=== PATIENT | male | born 1950 | race African-American/Black ===

== ENCOUNTER 2018-04-14 13:20 | Emergency (ER) | payer OTHER ==
[~2018-04-14] VITALS: Ht 185.4 cm; Wt 88.5 kg
[2018-04-14 14:20] VITALS: BP 169/95
[2018-04-14] MEDS ORDERED: KETOROLAC TROMETH 60MG/2ML VIAL IM ONE (14:45)
== END 2018-04-14 15:53 | disposition home or self-care (01) ==
LOC: ER 13:20
DX: M54.5 Low back pain (principal); I10 Essential (primary) hypertension; E11.9 Type 2 diabetes mellitus without complications; V49.49XA Driver injured in collision with other motor vehicles in traffic accident, initial encounter; Y93.89 Activity, other specified; Y99.8 Other external cause status; Y92.89 Other specified places as the place of occurrence of the external cause
CPT/HCPCS: 72100; 96372; 99284; J1885

== ENCOUNTER 2020-01-01 02:30 | Inpatient (IN) | payer MEDICAID ==
[2020-01-01] VITALS (16 sets, daily range): BP systolic 107–161; BP diastolic 22–92
[~2020-01-01] VITALS: Ht 195.6 cm; Wt 86.0 kg
[2020-01-01] MEDS ORDERED: PROPOFOL 100 ML IV ONE (02:43)
[2020-01-01] MEDS ORDERED: ETOMIDATE (2MG/ML) 20ML VIAL IV ONE (02:45)
[2020-01-01] MEDS ORDERED: SUCCINYLCHOLINE CHLORIDE 20 MG/ML 10ML VIAL IV ONE (02:45)
[2020-01-01] MEDS: PROPOFOL 100 ML IV SCH (02:45)
[2020-01-01] MEDS ORDERED: MIDAZOLAM DRIP 50 mg/50mL 50 ML IV ONE (02:55)
[2020-01-01] MEDS: MIDAZOLAM DRIP 50 mg/50mL 50 ML IV SCH ×3 (02:56→22:49)
[2020-01-01 03:19] LABS: Hemoglobin 15.7 g/dL (13.5-17.5)
[2020-01-01 03:20] LABS: Hematocrit 47.8 % (41.0-53.0); Mean Corpuscular Hemoglobin 32.5 pg (28.0-32.0); Mean Corpuscular Hgb Conc. 32.9 g/dL (32.0-36.0); Mean Corpuscular Volume 98.8 fL (80.0-100.0); Platelet Count (auto) 365 10^3/uL (140-450); Red Blood Cells 4.84 10^6/uL (4.5-5.90); Red Cell Distribution Width 13.3 % (11.8-14.3)
[2020-01-01] MEDS ORDERED: IPRATROPIUM BROM 0.5 MG/2.5ML INH SOL NEB ONE (03:30)
[2020-01-01] MEDS ORDERED: ALBUTEROL SULF 2.5 MG/0.5ML(0.5%) NEB SOLN NEB ONE (03:30)
[2020-01-01] MEDS ORDERED: methylPREDNISolone SOD SUCC 125 MG/2 ML VL IV ONE (03:30)
[2020-01-01 03:32] LABS: INR 1.01 (0.9-1.15); Partial Thromboplastin Time 28.5 sec (23.64-32.05)
[2020-01-01 03:36] LABS: Band Neutrophils % (manual) 0; Basophils % (manual) 0 (0.0-2.0); Blast Cells 0; Eosinophils % (manual) 0 (0-7); Metamyelocytes % 0; Myelocytes % 0; Promyelocytes % 0; Reactive Lymphocytes 0
[2020-01-01 03:47] LABS: Albumin 3.5 g/dL (3.4-5.0); Anion Gap 13 (5-15); Blood Urea Nitrogen 10 mg/dL (7-18); Carbon Dioxide 18 mmol/L (21-32); Chloride 104 mmol/L (98-107); Glucose 276 mg/dL (74-106); Potassium 3.4 mmol/L (3.5-5.1); Sodium 135 mmol/L (136-145)
[2020-01-01 03:49] LABS: Alanine Aminotransferase 37 U/L (16-61); Aspartate Aminotransferase 40 U/L (15-37); BUN/Creatinine Ratio 8.8; GFR African American 83 mL/min; GFR Non-African American 69 mL/min
[2020-01-01 03:51] LABS: Alkaline Phosphatase 83 U/L (45-117); Bilirubin, Total 0.4 mg/dL (0.2-1.0); Total Protein 8.7 g/dL (6.4-8.2)
[2020-01-01] MEDS ORDERED: SODIUM CHLORIDE 0.9% 1,000 ML IV ONE (03:53)
[2020-01-01 03:55] LABS: Lymphocytes % (manual) 75 (10.0-50.0); Monocytes % (manual) 5 (0-12)
[2020-01-01] MEDS ORDERED: ENOXAPARIN SOD 100 MG/1 ML SYRINGE SC ONE (04:15)
[2020-01-01] MEDS ORDERED: fentaNYL Drip 2500mCg/250mlNS 250 ML IV ONE (04:22)
[2020-01-01] MEDS: fentaNYL Drip 2500mCg/250mlNS 250 ML IV SCH (04:22)
[2020-01-01] MEDS ORDERED: PIPERACILLIN-TAZOB 3.375GM 100 ML IV ONE (04:30)
[2020-01-01] MEDS ORDERED: VANCOMYCIN 1GM/250ML 250 ML IV ONE ×2 (04:30→15:00)
[2020-01-01] MEDS ORDERED: SODIUM CHLORIDE 0.9% 1,000 ML IV SCH (06:40)
[2020-01-01] MEDS ORDERED: ACETAMINOPHEN 325 MG TAB PO PRN (06:45)
[2020-01-01] MEDS ORDERED: DEXTROSE (50%) 50ML SYRG IV PRN (06:45)
[2020-01-01] MEDS ORDERED: ACETAMINOPHEN 500 MG TAB PO PRN (06:45)
[2020-01-01] MEDS: ACCU-CHEK COMFORT CURVE STRIP VI SCH ×4 (08:41→20:00)
[2020-01-01] MEDS: InsuLIN REG 1unit/0.01ml Soln (100units/ml) SC SCH ×4 (09:17→20:00)
[2020-01-01] MEDS ORDERED: ZINC SULFATE 220mg CAP or TAB PO SCH (10:00)
[2020-01-01] MEDS ORDERED: ENOXAPARIN SOD 100 MG/1 ML SYRINGE SC SCH (10:00)
[2020-01-01] MEDS ORDERED: DOXYCYCLINE 100MG/250ML 250 ML IV SCH (10:00)
[2020-01-01] MEDS ORDERED: ASCORBIC ACID 1,000 MG TAB PO SCH (10:00)
[2020-01-01] MEDS ORDERED: CHOLECALCIFEROL (VITD3) 1,000IU=25mCg TAB PO SCH (10:00)
[2020-01-01] MEDS ORDERED: ENOXAPARIN SOD 40 MG/0.4 ML SYRINGE SC SCH (10:00)
[2020-01-01] MEDS: ASPirin 81 mg TAB PO SCH (11:20)
[2020-01-01] MEDS: CARVEDILOL 3.125 MG TAB PO SCH ×2 (11:20→21:39)
[2020-01-01] MEDS: CLOPIDOGREL BISULFATE 75 MG TAB PO SCH (11:21)
[2020-01-01] MEDS: ENALAPRIL MALEATE 2.5 MG TAB PO SCH ×2 (11:21→21:41)
[2020-01-01 11:23] LABS: Lactic Acid w/Reflex 2.1 mmol/L (0.4-2.0)
[2020-01-01 12:03] LABS: Urine Bacteria FEW /hpf (None Seen); Urine Blood 1+ /uL (Negative); Urine Specific Gravity 1.016 (1.001-1.035); Urine WBC 75 /hpf (0 - 3); Urine WBC Clumps PRESENT /hpf (None Seen)
[2020-01-01] MEDS ORDERED: ALBUTEROL SULF HFA 90MCG INH 200DOSE IN SCH (14:00)
[2020-01-01] MEDS: ALBUTEROL SULF 2.5 MG/0.5ML(0.5%) NEB SOLN NEB SCH ×2 (14:00→22:00)
[2020-01-01] MEDS ORDERED: VANCOMYCIN PER PHARMACY 0 MG IV SCH (14:30)
[2020-01-01] MEDS: PIPERACILLIN-TAZOB 3.375GM 100 ML IV SCH ×2 (16:05→21:40)
[2020-01-01] MEDS: FUROSEMIDE 20 MG/2 ML VIAL IV SCH (18:20)
[2020-01-01] MEDS: ATORVASTATIN 20 MG TAB PO SCH (21:38)
[2020-01-01] MEDS: methylPREDNISolone SOD SUCC 40 MG/ML VL IV SCH (21:40)
[2020-01-01] MEDS: SODIUM CHLORIDE 0.9% 1,000 ML IV SCH (21:40)
[2020-01-01] MEDS: ENOXAPARIN SOD 100 MG/1 ML SYRINGE SC SCH (21:41)
[2020-01-02] VITALS (42 sets, daily range): BP systolic 121–170; BP diastolic 66–98
[2020-01-02] MEDS: ACCU-CHEK COMFORT CURVE STRIP VI SCH ×6 (00:21→20:17)
[2020-01-02] MEDS: VANCOMYCIN 1GM/250ML 250 ML IV SCH ×2 (02:41→15:06)
[2020-01-02] MEDS: PIPERACILLIN-TAZOB 3.375GM 100 ML IV SCH ×4 (03:44→21:09)
[2020-01-02] MEDS: InsuLIN REG 1unit/0.01ml Soln (100units/ml) SC SCH ×6 (03:50→20:17)
[2020-01-02 04:24] LABS: Basophils # (auto) 0 10 ^3/uL (0-0.2); Basophils % (auto) 0.1 % (0.0-2.0); Eosinophils # (auto) 0 10 ^3/uL (0-0.8); Hematocrit 36.6 % (41.0-53.0); Hemoglobin 12.5 g/dL (13.5-17.5); Lymphocytes # (auto) 0.7 10 ^3/uL (0.4-5.4); Lymphocytes % (auto) 5.8 % (10.0-50.0); Mean Corpuscular Hemoglobin 32.4 pg (28.0-32.0); Mean Corpuscular Hgb Conc. 34.2 g/dL (32.0-36.0); Mean Corpuscular Volume 94.7 fL (80.0-100.0); Monocytes # (auto) 0.3 10 ^3/uL (0-1.3); Monocytes % (auto) 2.6 % (0.0-12.0); Neutrophils # (auto) 11.5 10 ^3/uL (1.6-8.6); Neutrophils % (auto) 91.5 % (37.0-80.0); Nucleated Red Blood Cells % 0.2 %; Platelet Count (auto) 169 10^3/uL (140-450); Red Blood Cells 3.87 10^6/uL (4.5-5.90); Red Cell Distribution Width 13.1 % (11.8-14.3); White Blood Cell 12.5 10^3/uL (4.4-10.8)
[2020-01-02 04:44] LABS: Calcium 7.9 mg/dL (8.5-10.1)
[2020-01-02 04:49] LABS: Albumin 2.7 g/dL (3.4-5.0); BUN/Creatinine Ratio 10.7; Bilirubin, Total 0.5 mg/dL (0.2-1.0); Total Protein 6.5 g/dL (6.4-8.2)
[2020-01-02] MEDS: FUROSEMIDE 20 MG/2 ML VIAL IV SCH ×2 (05:05→17:57)
[2020-01-02] MEDS: ALBUTEROL SULF 2.5 MG/0.5ML(0.5%) NEB SOLN NEB SCH ×3 (06:48→23:05)
[2020-01-02] MEDS: PROPOFOL 100 ML IV SCH (07:51)
[2020-01-02] MEDS: fentaNYL Drip 2500mCg/250mlNS 250 ML IV SCH (07:56)
[2020-01-02] MEDS: ENOXAPARIN SOD 100 MG/1 ML SYRINGE SC SCH ×2 (09:26→21:12)
[2020-01-02] MEDS: SODIUM CHLORIDE 0.9% 1,000 ML IV SCH (09:26)
[2020-01-02] MEDS: methylPREDNISolone SOD SUCC 40 MG/ML VL IV SCH ×2 (09:26→21:09)
[2020-01-02] MEDS: ASPirin 81 mg TAB PO SCH (09:27)
[2020-01-02] MEDS: CARVEDILOL 3.125 MG TAB PO SCH ×2 (09:27→21:11)
[2020-01-02] MEDS: CLOPIDOGREL BISULFATE 75 MG TAB PO SCH (09:27)
[2020-01-02] MEDS: ENALAPRIL MALEATE 2.5 MG TAB PO SCH ×2 (09:27→21:12)
[2020-01-02] MEDS ORDERED: AZITHROMYCIN 500MG/ 250ML 250 ML IV SCH (10:00)
[2020-01-02] MEDS: hydrALAZINE HCL 20 MG/ML VL IV PRN ×2 (12:50→22:52)
[2020-01-02 14:51] LABS: Basophils # (auto) 0 10 ^3/uL (0-0.2); Eosinophils # (auto) 0 10 ^3/uL (0-0.8); Hematocrit 40.4 % (41.0-53.0); Hemoglobin 13.8 g/dL (13.5-17.5); Lymphocytes # (auto) 0.8 10 ^3/uL (0.4-5.4); Lymphocytes % (auto) 4.8 % (10.0-50.0); Mean Corpuscular Hemoglobin 32.4 pg (28.0-32.0); Mean Corpuscular Hgb Conc. 34.2 g/dL (32.0-36.0); Mean Corpuscular Volume 94.9 fL (80.0-100.0); Monocytes # (auto) 0.4 10 ^3/uL (0-1.3); Monocytes % (auto) 2.4 % (0.0-12.0); Neutrophils # (auto) 16.5 10 ^3/uL (1.6-8.6); Neutrophils % (auto) 92.8 % (37.0-80.0); Nucleated Red Blood Cells % 0.1 %; Platelet Count (auto) 214 10^3/uL (140-450); Red Blood Cells 4.26 10^6/uL (4.5-5.90); Red Cell Distribution Width 13.3 % (11.8-14.3); White Blood Cell 17.8 10^3/uL (4.4-10.8)
[2020-01-02 15:10] LABS: INR 1.07 (0.9-1.15); Partial Thromboplastin Time 42.4 sec (23.64-32.05)
[2020-01-02] MEDS: ATORVASTATIN 20 MG TAB PO SCH (21:10)
[2020-01-02] MEDS: MORPHINE SULF INJ 2 MG/ML SYRINGE 1ML IV PRN (22:51)
[2020-01-03] VITALS (9 sets, daily range): BP systolic 118–189; BP diastolic 64–102
[2020-01-03] MEDS: TEMAZEPAM 15 MG CAP PO PRN (00:09)
[2020-01-03] MEDS: ACCU-CHEK COMFORT CURVE STRIP VI SCH ×6 (00:09→20:19)
[2020-01-03] MEDS: InsuLIN REG 1unit/0.01ml Soln (100units/ml) SC SCH ×6 (00:09→20:25)
[2020-01-03] MEDS: NITROGLYCERIN 0.4 MG SL TAB SL PRN ×2 (01:10→01:20)
[2020-01-03] MEDS: VANCOMYCIN 1GM/250ML 250 ML IV SCH ×2 (01:26→11:23)
[2020-01-03] MEDS: MORPHINE SULF INJ 2 MG/ML SYRINGE 1ML IV PRN ×5 (03:03→20:20)
[2020-01-03] MEDS: PIPERACILLIN-TAZOB 3.375GM 100 ML IV SCH ×4 (04:10→21:11)
[2020-01-03] MEDS: FUROSEMIDE 20 MG/2 ML VIAL IV SCH ×2 (05:45→18:20)
[2020-01-03] MEDS: hydrALAZINE HCL 20 MG/ML VL IV PRN (05:45)
[2020-01-03 05:59] LABS: Potassium 3.5 mmol/L (3.5-5.1)
[2020-01-03 06:11] LABS: Albumin 3.2 g/dL (3.4-5.0); BUN/Creatinine Ratio 15.1; Bilirubin, Total 0.6 mg/dL (0.2-1.0); Calcium 8.6 mg/dL (8.5-10.1); Magnesium 2.3 mg/dL (1.6-2.6); Phosphorus 2.7 mg/dL (2.5-4.90); Total Protein 7.6 g/dL (6.4-8.2)
[2020-01-03] MEDS: ALBUTEROL SULF 2.5 MG/0.5ML(0.5%) NEB SOLN NEB SCH ×3 (06:34→22:25)
[2020-01-03] MEDS ORDERED: hydrALAZINE HCL 25 MG TAB PO PRN (07:30)
[2020-01-03 07:45] LABS: INR 1.06 (0.9-1.15); Partial Thromboplastin Time 39.9 sec (23.64-32.05)
[2020-01-03] MEDS: CLOPIDOGREL BISULFATE 75 MG TAB PO SCH (09:37)
[2020-01-03] MEDS: CARVEDILOL 3.125 MG TAB PO SCH ×2 (09:38→21:11)
[2020-01-03] MEDS: ENALAPRIL MALEATE 2.5 MG TAB PO SCH (09:38)
[2020-01-03] MEDS: ENOXAPARIN SOD 100 MG/1 ML SYRINGE SC SCH ×2 (09:39→21:11)
[2020-01-03] MEDS: methylPREDNISolone SOD SUCC 40 MG/ML VL IV SCH (09:39)
[2020-01-03] MEDS: ASPirin 81 mg TAB PO SCH (10:00)
[2020-01-03 10:27] LABS: Basophils # (auto) 0.1 10 ^3/uL (0-0.2); Basophils % (auto) 0.3 % (0.0-2.0); Eosinophils # (auto) 0 10 ^3/uL (0-0.8); Hematocrit 43.9 % (41.0-53.0); Hemoglobin 14.8 g/dL (13.5-17.5); Lymphocytes # (auto) 1.8 10 ^3/uL (0.4-5.4); Lymphocytes % (auto) 8.2 % (10.0-50.0); Mean Corpuscular Hemoglobin 31.9 pg (28.0-32.0); Mean Corpuscular Hgb Conc. 33.8 g/dL (32.0-36.0); Mean Corpuscular Volume 94.3 fL (80.0-100.0); Monocytes # (auto) 1.5 10 ^3/uL (0-1.3); Neutrophils # (auto) 18.8 10 ^3/uL (1.6-8.6); Neutrophils % (auto) 84.5 % (37.0-80.0); Platelet Count (auto) 283 10^3/uL (140-450); Red Blood Cells 4.66 10^6/uL (4.5-5.90); Red Cell Distribution Width 13.3 % (11.8-14.3); White Blood Cell 22.3 10^3/uL (4.4-10.8)
[2020-01-03 10:30] LABS: Folate (Folic Acid) 5.7 ng/mL (5.38-24)
[2020-01-03] MEDS ORDERED: cloNIDine HCL 0.1 MG TAB PO ONE (11:30)
[2020-01-03] MEDS ORDERED: HCTZ 25 MG TAB PO ONE (12:00)
[2020-01-03] MEDS ORDERED: amLODIPine BESYLATE 5 MG TAB PO ONE (12:00)
[2020-01-03] MEDS: ATORVASTATIN 20 MG TAB PO SCH (21:11)
[2020-01-04] MEDS: ACCU-CHEK COMFORT CURVE STRIP VI SCH ×6 (00:11→20:10)
[2020-01-04] MEDS: InsuLIN REG 1unit/0.01ml Soln (100units/ml) SC SCH ×6 (00:13→20:12)
[2020-01-04] MEDS: PIPERACILLIN-TAZOB 3.375GM 100 ML IV SCH ×4 (04:08→21:49)
[2020-01-04 05:00] VITALS: BP 134/75
[2020-01-04] MEDS: MORPHINE SULF INJ 2 MG/ML SYRINGE 1ML IV PRN ×6 (05:02→23:03)
[2020-01-04] MEDS: FUROSEMIDE 20 MG/2 ML VIAL IV SCH (05:30)
[2020-01-04] MEDS: ALBUTEROL SULF 2.5 MG/0.5ML(0.5%) NEB SOLN NEB SCH ×3 (06:49→21:35)
[2020-01-04] MEDS: CARVEDILOL 3.125 MG TAB PO SCH (08:30)
[2020-01-04] MEDS: HCTZ 25 MG TAB PO SCH (08:31)
[2020-01-04] MEDS: amLODIPine BESYLATE 5 MG TAB PO SCH (08:31)
[2020-01-04] MEDS: CLOPIDOGREL BISULFATE 75 MG TAB PO SCH (08:32)
[2020-01-04 08:59] VITALS: BP 151/73
[2020-01-04] MEDS ORDERED: LOSARTAN POTASSIUM 50 MG TAB PO SCH (10:00)
[2020-01-04] MEDS: ENOXAPARIN SOD 100 MG/1 ML SYRINGE SC SCH ×2 (10:00→21:49)
[2020-01-04] MEDS: ASPirin 81 mg TAB PO SCH ×2 (10:00→15:07)
[2020-01-04 11:46] LABS: Basophils # (auto) 0.1 10 ^3/uL (0-0.2); Basophils % (auto) 0.5 % (0.0-2.0); Eosinophils # (auto) 0 10 ^3/uL (0-0.8); Eosinophils % (auto) 0.3 % (0.0-7.0); Hemoglobin 15.5 g/dL (13.5-17.5); Lymphocytes % (auto) 18.7 % (10.0-50.0); Mean Corpuscular Hemoglobin 32.8 pg (28.0-32.0); Mean Corpuscular Hgb Conc. 35.3 g/dL (32.0-36.0); Mean Corpuscular Volume 92.9 fL (80.0-100.0); Monocytes # (auto) 0.8 10 ^3/uL (0-1.3); Monocytes % (auto) 7.2 % (0.0-12.0); Neutrophils # (auto) 7.8 10 ^3/uL (1.6-8.6); Neutrophils % (auto) 73.3 % (37.0-80.0); Nucleated Red Blood Cells % 0.1 %; Platelet Count (auto) 205 10^3/uL (140-450); Red Blood Cells 4.74 10^6/uL (4.5-5.90); Red Cell Distribution Width 13.3 % (11.8-14.3); White Blood Cell 10.7 10^3/uL (4.4-10.8)
[2020-01-04] MEDS: NITROGLYCERIN 0.4 MG SL TAB SL PRN (12:00)
[2020-01-04 12:04] LABS: Calcium 8.7 mg/dL (8.5-10.1); Potassium 3.1 mmol/L (3.5-5.1)
[2020-01-04 12:07] LABS: Total Protein 7.2 g/dL (6.4-8.2)
[2020-01-04 12:11] LABS: BUN/Creatinine Ratio 16.5
[2020-01-04] MEDS ORDERED: LACTULOSE 20Gm/30ML SOLN PO ONE (13:00)
[2020-01-04 17:00] VITALS: BP 159/92
[2020-01-04] MEDS ORDERED: MORPHINE SULF INJ 2 MG/ML SYRINGE 1ML IV ONE (18:00)
[2020-01-04] MEDS ORDERED: POTASSIUM EFFERVESENT TAB 25 MEQ PO ONE (18:30)
[2020-01-04] MEDS: DOXYCYCLINE 100 MG TAB/CAP PO SCH (21:49)
[2020-01-04] MEDS: ATORVASTATIN 20 MG TAB PO SCH (21:49)
[2020-01-04] MEDS: PANTOPRAZOLE 40 MG TAB PO SCH (21:49)
[2020-01-04] MEDS: CARVEDILOL 12.5 MG TAB PO SCH (21:50)
[2020-01-04] MEDS: TEMAZEPAM 15 MG CAP PO PRN (21:50)
[2020-01-05] MEDS: MORPHINE SULF INJ 2 MG/ML SYRINGE 1ML IV PRN ×4 (03:39→22:58)
[2020-01-05] MEDS: ACCU-CHEK COMFORT CURVE STRIP VI SCH ×7 (04:06→23:59)
[2020-01-05] MEDS: PIPERACILLIN-TAZOB 3.375GM 100 ML IV SCH (04:06)
[2020-01-05] MEDS: InsuLIN REG 1unit/0.01ml Soln (100units/ml) SC SCH ×7 (04:07→23:59)
[2020-01-05 06:11] LABS: Basophils # (auto) 0 10 ^3/uL (0-0.2); Basophils % (auto) 0.1 % (0.0-2.0); Eosinophils # (auto) 0.1 10 ^3/uL (0-0.8); Eosinophils % (auto) 1.4 % (0.0-7.0); Hematocrit 43.2 % (41.0-53.0); Hemoglobin 15.4 g/dL (13.5-17.5); Lymphocytes # (auto) 2.4 10 ^3/uL (0.4-5.4); Mean Corpuscular Hemoglobin 32.9 pg (28.0-32.0); Mean Corpuscular Hgb Conc. 35.6 g/dL (32.0-36.0); Mean Corpuscular Volume 92.4 fL (80.0-100.0); Monocytes # (auto) 0.9 10 ^3/uL (0-1.3); Monocytes % (auto) 9.8 % (0.0-12.0); Neutrophils # (auto) 5.9 10 ^3/uL (1.6-8.6); Neutrophils % (auto) 62.7 % (37.0-80.0); Nucleated Red Blood Cells % 0.1 %; Platelet Count (auto) 219 10^3/uL (140-450); Red Blood Cells 4.68 10^6/uL (4.5-5.90); White Blood Cell 9.3 10^3/uL (4.4-10.8)
[2020-01-05 06:19] VITALS: BP 140/85
[2020-01-05] MEDS: ALBUTEROL SULF 2.5 MG/0.5ML(0.5%) NEB SOLN NEB SCH ×3 (06:40→22:36)
[2020-01-05 06:44] LABS: Potassium 3.2 mmol/L (3.5-5.1)
[2020-01-05 06:56] LABS: Albumin 2.9 g/dL (3.4-5.0); BUN/Creatinine Ratio 17.2; Bilirubin, Total 1.1 mg/dL (0.2-1.0); Calcium 8.4 mg/dL (8.5-10.1); Total Protein 7.3 g/dL (6.4-8.2)
[2020-01-05 09:00] VITALS: BP 105/65
[2020-01-05] MEDS ORDERED: POTASSIUM EFFERVESENT TAB 25 MEQ PO ONE (09:30)
[2020-01-05] MEDS: amLODIPine BESYLATE 5 MG TAB PO SCH (09:50)
[2020-01-05] MEDS: HCTZ 25 MG TAB PO SCH (09:50)
[2020-01-05] MEDS: CARVEDILOL 12.5 MG TAB PO SCH ×2 (09:51→21:19)
[2020-01-05] MEDS: ASPirin 81 mg TAB PO SCH (10:00)
[2020-01-05] MEDS: CLOPIDOGREL BISULFATE 75 MG TAB PO SCH (10:00)
[2020-01-05] MEDS ORDERED: fentaNYL CITRATE 100 MCG/2 ML VL ONE (11:42)
[2020-01-05] MEDS ORDERED: MIDAZOLAM HCL 1MG/1ML-2 ML VIAL ONE (11:43)
[2020-01-05] MEDS ORDERED: LIDOCAINE 2%HCL (LOCAL ANESTH.) INJ 20ML MDV ONE (11:43)
[2020-01-05] MEDS ORDERED: SODIUM CHL 0.9% 50 ML ONE (12:07)
[2020-01-05] MEDS ORDERED: ANGIOMAX 250 MG VIAL IV ONE (12:07)
[2020-01-05] MEDS ORDERED: IODIXANOL 320MG/ML 100ML BTL IV ONE (12:20)
[2020-01-05] MEDS ORDERED: ASPirin 81 mg TAB ONE (12:41)
[2020-01-05] MEDS ORDERED: CLOPIDOGREL BISULFATE 75 MG TAB ONE (12:41)
[2020-01-05 14:00] VITALS: BP 128/77
[2020-01-05] MEDS: PANTOPRAZOLE 40 MG TAB PO SCH ×2 (14:29→21:20)
[2020-01-05] MEDS: ENOXAPARIN SOD 100 MG/1 ML SYRINGE SC SCH ×2 (14:29→21:20)
[2020-01-05] MEDS: DOXYCYCLINE 100 MG TAB/CAP PO SCH ×2 (14:29→21:20)
[2020-01-05 17:00] VITALS: BP 108/67
[2020-01-05] MEDS: ATORVASTATIN 20 MG TAB PO SCH (21:19)
[2020-01-05 21:45] VITALS: BP 114/55
[2020-01-05] MEDS: TEMAZEPAM 15 MG CAP PO PRN (21:47)
[2020-01-06] MEDS: InsuLIN REG 1unit/0.01ml Soln (100units/ml) SC SCH ×5 (04:00→20:21)
[2020-01-06] MEDS: ACCU-CHEK COMFORT CURVE STRIP VI SCH ×5 (04:17→20:21)
[2020-01-06] MEDS: MORPHINE SULF INJ 2 MG/ML SYRINGE 1ML IV PRN ×5 (04:17→20:28)
[2020-01-06 05:05] VITALS: BP 105/57
[2020-01-06] MEDS: ALBUTEROL SULF 2.5 MG/0.5ML(0.5%) NEB SOLN NEB SCH ×3 (06:00→22:00)
[2020-01-06] MEDS ORDERED: SODIUM CHLORIDE 0.9 % NEB SOLN 3ML NEB ONE (06:07)
[2020-01-06 08:00] VITALS: BP 152/72
[2020-01-06] MEDS: DOXYCYCLINE 100 MG TAB/CAP PO SCH ×2 (09:26→21:09)
[2020-01-06] MEDS: ENOXAPARIN SOD 100 MG/1 ML SYRINGE SC SCH (09:26)
[2020-01-06] MEDS: CLOPIDOGREL BISULFATE 75 MG TAB PO SCH (09:27)
[2020-01-06] MEDS: HCTZ 25 MG TAB PO SCH (09:28)
[2020-01-06] MEDS: ASPirin 81 mg TAB PO SCH (09:29)
[2020-01-06] MEDS: CARVEDILOL 12.5 MG TAB PO SCH ×2 (09:29→21:09)
[2020-01-06] MEDS: amLODIPine BESYLATE 5 MG TAB PO SCH (09:29)
[2020-01-06] MEDS: PANTOPRAZOLE 40 MG TAB PO SCH ×2 (09:29→21:09)
[2020-01-06 10:05] LABS: BUN/Creatinine Ratio 20.3; Calcium 7.9 mg/dL (8.5-10.1); Potassium 3.8 mmol/L (3.5-5.1)
[2020-01-06 11:24] LABS: Basophils # (auto) 0 10 ^3/uL (0-0.2); Basophils % (auto) 0.2 % (0.0-2.0); Eosinophils # (auto) 0.3 10 ^3/uL (0-0.8); Eosinophils % (auto) 3.4 % (0.0-7.0); Hematocrit 44.2 % (41.0-53.0); Lymphocytes # (auto) 1.9 10 ^3/uL (0.4-5.4); Lymphocytes % (auto) 23.4 % (10.0-50.0); Mean Corpuscular Hemoglobin 32.5 pg (28.0-32.0); Mean Corpuscular Hgb Conc. 33.8 g/dL (32.0-36.0); Monocytes # (auto) 0.9 10 ^3/uL (0-1.3); Monocytes % (auto) 10.7 % (0.0-12.0); Neutrophils % (auto) 62.3 % (37.0-80.0); Nucleated Red Blood Cells % 0.1 %; Platelet Count (auto) 201 10^3/uL (140-450); Red Cell Distribution Width 13.1 % (11.8-14.3)
[2020-01-06] MEDS ORDERED: HYOSCYAMINE SULF 0.125 MG ODT TAB PO PRN (12:30)
[2020-01-06 12:43] VITALS: BP 108/68
[2020-01-06] MEDS: SODIUM CHLORIDE 0.9% 1,000 ML IV SCH (13:00)
[2020-01-06] MEDS ORDERED: cefTRIAXone 1GM/50ML D5W 50 ML IV ONE (13:15)
[2020-01-06] MEDS ORDERED: POTASSIUM CHL 20 Meq TABLET PO ONE (15:30)
[2020-01-06 16:35] LABS: Urine Bacteria FEW /hpf (None Seen); Urine Blood Negative /uL (Negative); Urine Specific Gravity 1.019 (1.001-1.035); Urine WBC 1 /hpf (0 - 3)
[2020-01-06] MEDS: cefTRIAXone 1GM/50ML D5W 50 ML IV SCH (20:28)
[2020-01-06] MEDS: ATORVASTATIN 20 MG TAB PO SCH (21:09)
[2020-01-06] MEDS: INSULIN LANTUS (GLARGINE) 1 /0.01ml (100units/ml) SC SCH (22:06)
[2020-01-07] MEDS: ACCU-CHEK COMFORT CURVE STRIP VI SCH ×6 (00:06→20:33)
[2020-01-07] MEDS: MORPHINE SULF INJ 2 MG/ML SYRINGE 1ML IV PRN ×7 (00:31→21:16)
[2020-01-07] MEDS: InsuLIN REG 1unit/0.01ml Soln (100units/ml) SC SCH ×6 (03:56→21:13)
[2020-01-07 05:01] VITALS: BP 126/74
[2020-01-07] MEDS: SODIUM CHLORIDE 0.9% 1,000 ML IV SCH ×2 (05:40→21:15)
[2020-01-07] MEDS: ALBUTEROL SULF 2.5 MG/0.5ML(0.5%) NEB SOLN NEB SCH ×3 (06:00→23:15)
[2020-01-07 06:35] LABS: Potassium 3.8 mmol/L (3.5-5.1)
[2020-01-07 06:46] LABS: Albumin 2.8 g/dL (3.4-5.0); BUN/Creatinine Ratio 20.5; Bilirubin, Total 0.6 mg/dL (0.2-1.0); Calcium 8.1 mg/dL (8.5-10.1); Total Protein 6.5 g/dL (6.4-8.2)
[2020-01-07] MEDS: cefTRIAXone 1GM/50ML D5W 50 ML IV SCH ×2 (08:52→20:34)
[2020-01-07] MEDS ORDERED: GASTROGRAFIN 120 ML SOL ONE (08:53)
[2020-01-07] MEDS ORDERED: EZ-GAS II GRANULES (RADIOLOGY USE) PO ONE (08:53)
[2020-01-07] MEDS: INSULIN LANTUS (GLARGINE) 1 /0.01ml (100units/ml) SC SCH ×2 (08:56→21:13)
[2020-01-07] MEDS ORDERED: ONDANSETRON HCL 4 MG/2 ML VIAL IV PRN (10:00)
[2020-01-07] MEDS: DOXYCYCLINE 100 MG TAB/CAP PO SCH ×2 (12:14→21:13)
[2020-01-07] MEDS: ASPirin 81 mg TAB PO SCH (12:14)
[2020-01-07] MEDS: PANTOPRAZOLE 40 MG TAB PO SCH ×2 (12:14→21:13)
[2020-01-07] MEDS: CLOPIDOGREL BISULFATE 75 MG TAB PO SCH (12:14)
[2020-01-07] MEDS: CARVEDILOL 12.5 MG TAB PO SCH ×2 (12:15→21:14)
[2020-01-07] MEDS: amLODIPine BESYLATE 5 MG TAB PO SCH (12:15)
[2020-01-07] MEDS ORDERED: AML5T PO (14:00)
[2020-01-07] MEDS ORDERED: ATOR20TA50 PO (14:00)
[2020-01-07] MEDS ORDERED: CLOP75TA28 PO (14:00)
[2020-01-07] MEDS ORDERED: ASPI81CH43 PO (14:00)
[2020-01-07] MEDS ORDERED: PANT40T PO (14:00)
[2020-01-07] MEDS ORDERED: CAR125T PO (14:00)
[2020-01-07] MEDS ORDERED: HYDR50TA15 PO (14:03)
[2020-01-07] MEDS ORDERED: DOX100T PO (14:03)
[2020-01-07] MEDS ORDERED: AMOX500T86 PO (14:04)
[2020-01-07] MEDS: LIDOCAINE 5% TOPICAL PATCH TOP SCH (15:52)
[2020-01-07] MEDS: ATORVASTATIN 20 MG TAB PO SCH (21:14)
[2020-01-08] MEDS: InsuLIN REG 1unit/0.01ml Soln (100units/ml) SC SCH ×3 (01:04→08:00)
[2020-01-08] MEDS: ACCU-CHEK COMFORT CURVE STRIP VI SCH ×3 (01:04→09:40)
[2020-01-08] MEDS: MORPHINE SULF INJ 2 MG/ML SYRINGE 1ML IV PRN (04:23)
[2020-01-08] MEDS: ALBUTEROL SULF 2.5 MG/0.5ML(0.5%) NEB SOLN NEB SCH ×2 (05:59→06:00)
[2020-01-08] MEDS: CARVEDILOL 12.5 MG TAB PO SCH (09:41)
[2020-01-08] MEDS: PANTOPRAZOLE 40 MG TAB PO SCH (09:41)
[2020-01-08] MEDS: cefTRIAXone 1GM/50ML D5W 50 ML IV SCH (09:41)
[2020-01-08] MEDS: amLODIPine BESYLATE 5 MG TAB PO SCH (09:41)
[2020-01-08] MEDS: ASPirin 81 mg TAB PO SCH (09:41)
[2020-01-08] MEDS: CLOPIDOGREL BISULFATE 75 MG TAB PO SCH (09:41)
[2020-01-08] MEDS: INSULIN LANTUS (GLARGINE) 1 /0.01ml (100units/ml) SC SCH (09:42)
[2020-01-08] MEDS: DOXYCYCLINE 100 MG TAB/CAP PO SCH (09:42)
[2020-01-08] MEDS: LIDOCAINE 5% TOPICAL PATCH TOP SCH (09:42)
[2020-01-08 10:31] LABS: Albumin 2.9 g/dL (3.4-5.0); Calcium 8.3 mg/dL (8.5-10.1); Potassium 3.6 mmol/L (3.5-5.1)
[2020-01-08 10:35] LABS: Bilirubin, Total 0.7 mg/dL (0.2-1.0); Total Protein 7.1 g/dL (6.4-8.2)
[2020-01-10 11:09] LABS: Hepatitis B Surface Antibody Positive
[2020-01-10 11:42] LABS: Hepatitis A Total Antibody Negative
[2020-01-10 13:10] LABS: Hepatitis B Surface Antigen Negative (Negative)
[2020-01-11 09:35] LABS: Hepatitis B Core Total AB Positive; Hepatitis C Antibody Positive (Negative)
== END 2020-01-08 12:00 | disposition home or self-care (01) | DRG 710 ==
LOC: EDBD 02:30 → ER 02:30 → TELE 02:31 → ICU WEST 21:25 → TELE-DOU 01-02 17:25 → TELE-EAST 01-02 17:44 → TELE-WESTW 01-03 00:56
PROVIDERS: ADMIT Hospitalist; ATTEND Internal Medicine Nephrology
PROC: 0BH17EZ Insertion of Endotracheal Airway into Trachea, Via Natural or Artificial Opening (ICD-10-PCS; principal; 2020-01-05)
PROC: 5A1945Z Respiratory Ventilation, 24-96 Consecutive Hours (ICD-10-PCS; 2020-01-05)
PROC: 02733ZZ Dilation of Coronary Artery, Four or More Arteries, Percutaneous Approach (ICD-10-PCS; 2020-01-05)
PROC: 4A023N7 Measurement of Cardiac Sampling and Pressure, Left Heart, Percutaneous Approach (ICD-10-PCS; 2020-01-05)
PROC: B2111ZZ Fluoroscopy of Multiple Coronary Arteries using Low Osmolar Contrast (ICD-10-PCS; 2020-01-05)
PROC: B2151ZZ Fluoroscopy of Left Heart using Low Osmolar Contrast (ICD-10-PCS; 2020-01-05)
PROC: B41F1ZZ Fluoroscopy of Right Lower Extremity Arteries using Low Osmolar Contrast (ICD-10-PCS; 2020-01-05)
PROC: B241ZZ3 Ultrasonography of Multiple Coronary Arteries, Intravascular (ICD-10-PCS; 2020-01-05)
PROC: 02HV33Z Insertion of Infusion Device into Superior Vena Cava, Percutaneous Approach (ICD-10-PCS; 2020-01-05)
DX: A41.50 Gram-negative sepsis, unspecified (principal); I21.4 Non-ST elevation (NSTEMI) myocardial infarction; J15.6 Pneumonia due to other Gram-negative bacteria; J96.01 Acute respiratory failure with hypoxia; N17.0 Acute kidney failure with tubular necrosis; J96.00 Acute respiratory failure, unspecified whether with hypoxia or hypercapnia; J44.0 Chronic obstructive pulmonary disease with (acute) lower respiratory infection; I13.0 Hypertensive heart and chronic kidney disease with heart failure and stage 1 through stage 4 chronic kidney disease, or unspecified chronic kidney disease; I50.9 Heart failure, unspecified; J44.1 Chronic obstructive pulmonary disease with (acute) exacerbation; E78.5 Hyperlipidemia, unspecified; E11.65 Type 2 diabetes mellitus with hyperglycemia; I25.10 Atherosclerotic heart disease of native coronary artery without angina pectoris; K57.90 Diverticulosis of intestine, part unspecified, without perforation or abscess without bleeding; N18.9 Chronic kidney disease, unspecified; Z95.5 Presence of coronary angioplasty implant and graft; Z79.899 Other long term (current) drug therapy; Z20.828 Contact with and (suspected) exposure to other viral communicable diseases
CPT/HCPCS: 36415; 36600; 71045; 71250; 74176; 74250; 75710; 76705; 76775; 80048; 80053; 80202; 81001; 82306; 82550; 82570; 82607; 82728; 82746; 82805; 82962; 83010; 83036; 83605; 83615; 83735; 83880; 83935; 83970; 84100; 84156; 84300; 84443; 84484; 85007; 85025; 85027; 85045; 85379; 85610; 85652; 85730; 86141; 86704; 86706; 86708; 86803; 87040; 87070; 87081; 87086; 87205; 87340; 87804; 87880; 92920; 92921; 92978; 92979; 93005; 93306; 93458; 93970; 94002; 94003; 94640; 97163; 99152; 99153; G0378; J0330; J0696; J1815; J2250; J2405; J2543; J2704; Q9967

== ENCOUNTER 2020-01-13 14:18 | Inpatient (IN) | payer MEDICAID ==
[~2020-01-13] VITALS: Ht 185.4 cm; Wt 86.8 kg
[~2020-01-13 14:18] MED LIST: AML5T PO; AMOX500T86 PO; ASPI81CH43 PO; ATOR20TA50 PO; CAR125T PO; CLOP75TA28 PO; DOX100T PO; HYDR50TA15 PO; PANT40T PO
[2020-01-13] MEDS ORDERED: SODIUM CHLORIDE 0.9% 1,000 ML IV ONE (14:25)
[2020-01-13] MEDS ORDERED: MORPHINE SULF INJ 2 MG/ML SYRINGE 1ML IV ONE (15:30)
[2020-01-13 16:05] VITALS: BP 130/68
[2020-01-13] MEDS ORDERED: cefTRIAXone 1GM/50ML D5W 50 ML IV ONE (16:30)
[2020-01-13] MEDS ORDERED: ASCORBIC ACID 500 MG TAB PO ONE (16:30)
[2020-01-13] MEDS ORDERED: AZITHROMYCIN 500MG/ 250ML 250 ML IV ONE (16:30)
[2020-01-13] MEDS ORDERED: ZINC SULFATE 220mg CAP or TAB PO ONE (16:30)
[2020-01-13 16:44] LABS: Basophils # (auto) 0 10 ^3/uL (0-0.2); Basophils % (auto) 0.1 % (0.0-2.0); Eosinophils # (auto) 0 10 ^3/uL (0-0.8); Eosinophils % (auto) 0.1 % (0.0-7.0); Hematocrit 34.2 % (41.0-53.0); Hemoglobin 11.5 g/dL (13.5-17.5); Lymphocytes # (auto) 0.8 10 ^3/uL (0.4-5.4); Lymphocytes % (auto) 4.8 % (10.0-50.0); Mean Corpuscular Hemoglobin 31.8 pg (28.0-32.0); Mean Corpuscular Hgb Conc. 33.6 g/dL (32.0-36.0); Mean Corpuscular Volume 94.5 fL (80.0-100.0); Monocytes # (auto) 0.8 10 ^3/uL (0-1.3); Monocytes % (auto) 4.8 % (0.0-12.0); Neutrophils # (auto) 15.3 10 ^3/uL (1.6-8.6); Neutrophils % (auto) 90.2 % (37.0-80.0); Platelet Count (auto) 246 10^3/uL (140-450); Red Blood Cells 3.62 10^6/uL (4.5-5.90)
[2020-01-13 16:57] LABS: Albumin 2.8 g/dL (3.4-5.0); Calcium 8.5 mg/dL (8.5-10.1); Potassium 4.5 mmol/L (3.5-5.1)
[2020-01-13 17:03] LABS: BUN/Creatinine Ratio 13.6; Bilirubin, Total 0.5 mg/dL (0.2-1.0); Total Protein 7.2 g/dL (6.4-8.2)
[2020-01-13 17:12] LABS: INR 1.07 (0.9-1.15); Partial Thromboplastin Time 29.9 sec (23.64-32.05)
[2020-01-13] MEDS ORDERED: NITROGLYCERIN 0.4 MG SL TAB SL PRN ×2 (17:15→19:30)
[2020-01-13] MEDS ORDERED: MORPHINE SULF INJ 2 MG/ML SYRINGE 1ML IV PRN ×2 (17:15→19:30)
[2020-01-13] MEDS ORDERED: FUROSEMIDE 100 MG/10ML VIAL IV ONE (17:15)
[2020-01-13 18:32] LABS: Urine Bacteria FEW /hpf (None Seen); Urine Blood Negative /uL (Negative); Urine Hyaline Cast FEW /lpf (0 - 2); Urine Specific Gravity 1.009 (1.001-1.035); Urine WBC 3 /hpf (0 - 3)
[2020-01-13 18:54] VITALS: BP 128/80
--- NOTE | 2020-01-13 18:54 | NUR ---
Telemetry admit from ER MONSERRAT JONES admitted to Telemetry unit after SBAR received. Patient oriented to NELSON FOOTE RN primary RN, unit, room, bed, and unit policies regarding patient care and visiting hours. Patient now on continuous telemetry monitoring, tele box # 9 and telemetry reading on arrival to unit is SR. Patient placed on bedside oxygen, weighed by bedscale and encouraged to call if they need something. All questions and concerns addressed, patient verbalized understanding. Will endorse report to night EDENILSON Lopez.
[2020-01-13] MEDS ORDERED: hydrALAZINE HCL 20 MG/ML VL IV PRN (19:15)
[2020-01-13] MEDS ORDERED: VANCOMYCIN PER PHARMACY 0 MG IV SCH (19:15)
--- NOTE | 2020-01-13 19:20 | NUR ---
Opening Shift Note Received report from diane Floyd RN. Assumed care of patient, awake and alert but lethargic. No S/S of distress/SOB or pain. Instructed on POC and to call for assist PRN, will continue to monitor for changes Q1hr and PRN.
[2020-01-13] MEDS ORDERED: ALUM & MAG HYDROX-SIMETH LIQ(MAALOX) 30 ML PO PRN (19:30)
[2020-01-13] MEDS ORDERED: ONDANSETRON HCL 4 MG/2 ML VIAL IV PRN (19:30)
[2020-01-13] MEDS ORDERED: HYDROcodone-ACET 5/325MG TAB PO PRN (19:30)
[2020-01-13] MEDS ORDERED: ENOXAPARIN SOD 100 MG/1 ML SYRINGE SC ONE (19:30)
[2020-01-13] MEDS ORDERED: DOCUSATE SOD 100 MG CAP PO PRN (19:30)
[2020-01-13 20:00] VITALS: BP 146/83
[2020-01-13 20:25] VITALS: BP 128/80
[2020-01-13] MEDS: MORPHINE SULF INJ 2 MG/ML SYRINGE 1ML IV PRN (20:40)
--- NOTE | 2020-01-13 20:40 | NUR ---
GIVEN PAIN MEDICATION FOR RIGHT ABDOMINAL PAIN. WILL MONITOR.
[2020-01-13] MEDS ORDERED: VANCOMYCIN 1GM/250ML 250 ML IV SCH (21:00)
[2020-01-13 21:02] VITALS: BP 128/80
[2020-01-13 21:24] VITALS: BP 128/80
[2020-01-13] MEDS: ATORVASTATIN 20 MG TAB PO SCH (21:55)
[2020-01-13] MEDS: PANTOPRAZOLE 40 MG TAB PO SCH (21:55)
[2020-01-13] MEDS: CARVEDILOL 12.5 MG TAB PO SCH (21:55)
[2020-01-13] MEDS ORDERED: METF-370 PO (23:24)
[2020-01-14] VITALS (7 sets, daily range): BP systolic 101–130; BP diastolic 63–77
[2020-01-14] MEDS: PIPERACILLIN-TAZOB 3.375GM 100 ML IV SCH ×2 (00:10→05:31)
--- NOTE | 2020-01-14 00:54 | NUR ---
Respiratory note: AT BEDSIDE TO ASSESS PT. NO S/S OF DISTRESS NOTED. POX 94-95% ON 6LPM NC, HR 90S. BS ARE RHONCHI T/O RIGHT LUNG MARCANO DIMINISHED T/O. WILL CONTINUE TO MONITOR NEEDED. EDENILSON SOLER COMMUNICATED ON PT FINDINGS.
--- NOTE | 2020-01-14 01:00 | NUR ---
[facility] SWAB SENT TO LAB
[2020-01-14] MEDS: MORPHINE SULF INJ 2 MG/ML SYRINGE 1ML IV PRN ×4 (01:39→20:05)
[2020-01-14 05:58] LABS: Basophils # (auto) 0 10 ^3/uL (0-0.2); Basophils % (auto) 0.4 % (0.0-2.0); Eosinophils # (auto) 0.1 10 ^3/uL (0-0.8); Eosinophils % (auto) 0.9 % (0.0-7.0); Hematocrit 28.1 % (41.0-53.0); Hemoglobin 9.9 g/dL (13.5-17.5); Lymphocytes # (auto) 2.1 10 ^3/uL (0.4-5.4); Mean Corpuscular Hgb Conc. 35.3 g/dL (32.0-36.0); Mean Corpuscular Volume 93.4 fL (80.0-100.0); Monocytes # (auto) 0.5 10 ^3/uL (0-1.3); Monocytes % (auto) 5.9 % (0.0-12.0); Neutrophils # (auto) 6.4 10 ^3/uL (1.6-8.6); Neutrophils % (auto) 69.8 % (37.0-80.0); Nucleated Red Blood Cells % 0.1 %; Platelet Count (auto) 219 10^3/uL (140-450); Red Blood Cells 3.01 10^6/uL (4.5-5.90); Red Cell Distribution Width 12.6 % (11.8-14.3); White Blood Cell 9.1 10^3/uL (4.4-10.8)
[2020-01-14] MEDS ORDERED: FUROSEMIDE 40 MG/4 ML VIAL IV SCH (06:00)
[2020-01-14] MEDS: IPRATROPIUM BROM 0.5 MG/2.5ML INH SOL NEB SCH ×6 (06:00→22:28)
--- NOTE | 2020-01-14 06:00 | NUR ---
Patient is negative for covid-19. Charge nurse aware. Patient will transfer to [facility]. Patient is aware, and report given to EDENILSON Moses.
--- NOTE | 2020-01-14 06:00 | NUR ---
Report received from Anthony.
[2020-01-14 06:20] LABS: Potassium 3.6 mmol/L (3.5-5.1)
[2020-01-14 06:28] LABS: Albumin 2.6 g/dL (3.4-5.0); BUN/Creatinine Ratio 12.5; Bilirubin, Total 0.6 mg/dL (0.2-1.0); Calcium 8.3 mg/dL (8.5-10.1); Magnesium 1.8 mg/dL (1.6-2.6); Phosphorus 2.9 mg/dL (2.5-4.90)
[2020-01-14 06:33] LABS: INR 1.08 (0.9-1.15); Partial Thromboplastin Time 38.8 sec (23.64-32.05)
--- NOTE | 2020-01-14 06:43 | NUR ---
Patient transferred to [facility] with all personal belongings via wheelchair. No distress noted at time of transfer, accepted by EDENILSON Moses.
--- NOTE | 2020-01-14 06:43 | NUR ---
Received patient transfer from Covid unit per wheelchair awake alert oriented x 4, not in respiratory distress with 6 liters oxygen per nasal cannula, placed in the bed comfortably.
--- NOTE | 2020-01-14 07:10 | NUR ---
Report given to Huma Padilla, patient is resting no distress.
--- NOTE | 2020-01-14 07:30 | NUR ---
Opening Shift Note RECEIVED REPORT FROM NOC RN. Assumed care of patient, awake and alert. PATIENT ON OXYGEN AT 3 LPM VIA NASAL CANNULA WITH no S/S of distress/SOB or pain. BED IN LOWEST, LOCKED POSITION WITH SIDERAILS UP x2 AND CALL LIGHT WITHIN REACH. Instructed on POC and to call for assist PRN, will continue to monitor for changes Q1hr and PRN.
--- NOTE | 2020-01-14 07:50 | NUR ---
PT REFUSED 0600 SCHEDULED HHN TX. RECD PT ON 6 LITERS NASAL CANNULA. TITRATED NC TO 3 LITERS. SPO2 97%, HR 90, RR 20. PT STATES HE HAD ENOUGH BREATHING TXS IN ER RECENTLY AND DENIES SOB. WILL CONTINUE TO FOLLOW UP WITH NEXT SCHEDULED BREATHING TX.
[2020-01-14] MEDS: CARVEDILOL 12.5 MG TAB PO SCH ×2 (08:25→18:29)
[2020-01-14] MEDS: ASPirin 81 mg TAB PO SCH (09:45)
[2020-01-14] MEDS: PANTOPRAZOLE 40 MG TAB PO SCH ×2 (09:45→21:28)
[2020-01-14] MEDS: CLOPIDOGREL BISULFATE 75 MG TAB PO SCH (09:45)
[2020-01-14] MEDS: amLODIPine BESYLATE 5 MG TAB PO SCH (09:46)
[2020-01-14] MEDS: LISINOPRIL 20 MG TAB PO SCH (09:46)
[2020-01-14] MEDS: ENOXAPARIN SOD 40 MG/0.4 ML SYRINGE SC SCH (09:47)
[2020-01-14] MEDS ORDERED: DOXYCYCLINE 100 MG TAB/CAP PO ONE (12:00)
--- NOTE | 2020-01-14 14:30 | NUR ---
PT REFUSED 0600, 1000, AND 1400 SCHEDULED BREATHING TXS TODAY. EDENILSON YAO AWARE OF REFUSALS. ASKED PT IF HE WOULD LIKE TX'S DC'D AND PT STATES, " NO BECAUSE I WANT TO TAKE ONE LATER." EDENILSON YAO AND PATIENT AWARE TO HAVE THIS RT PAGED IF HE CHANGES HIS MIND/ OR SOB OCCURS.
[2020-01-14] MEDS: CEFEPIME 1 GM in SODIUM CHL 0.9% 50 ML IV SCH ×2 (14:33→21:26)
[2020-01-14] MEDS ORDERED: IOHEXOL 350 MG/ML 100ML IJ ONE (16:11)
--- NOTE | 2020-01-14 19:35 | NUR ---
Opening Shift Note Patient AOx4 w/ HOB at 30 degrees. Patient has no SOB or distress at this time. Patient precautions in place w/ bed locked in lowest position and call light within reach. Will continue to monitor.
--- NOTE | 2020-01-14 20:00 | NUR ---
Patient Complains of Pain 10/10. Patient given medication as prescribed. Will continue to monitor.
[2020-01-14] MEDS: ATORVASTATIN 20 MG TAB PO SCH (21:26)
[2020-01-14] MEDS: DOXYCYCLINE 100 MG TAB/CAP PO SCH (21:28)
--- NOTE | 2020-01-14 22:29 | NUR ---
PT REFUSED TX FOR REST OF THE NIGHT. PT IS AWARE TO HAVE RT PAGED IF TX NEEDED OR BECOMES SOB. PT IS RESTING WITH NO ACUTE RESP DISTRESS AT THIS TIME.
--- NOTE | 2020-01-15 | NUR ---
Patient complains or right side pain 10/10. Patient given pain medication as prescribed. Will continue to monitor.
[2020-01-15] MEDS: MORPHINE SULF INJ 2 MG/ML SYRINGE 1ML IV PRN ×4 (00:09→22:46)
[2020-01-15] MEDS: LORazepam 0.5 MG TAB PO PRN ×2 (02:12→22:47)
--- NOTE | 2020-01-15 02:18 | NUR ---
Patient requested anti-anxiety medication. Patient given medication as prescribed. Will continue to monitor.
[2020-01-15 05:00] VITALS: BP 142/81
[2020-01-15] MEDS: CEFEPIME 1 GM in SODIUM CHL 0.9% 50 ML IV SCH ×3 (05:39→22:44)
[2020-01-15] MEDS: IPRATROPIUM BROM 0.5 MG/2.5ML INH SOL NEB SCH ×2 (06:00→10:00)
--- NOTE | 2020-01-15 06:12 | NUR ---
Respiratory note: PT REFUSE 0600 MED NEB. EDUCATED PT ON BENEFITS. WROTE NAME AND PAGER ON BOARD AND INFORMED PT TO HAVE RT PAGED IF BECOMES SOB.
[2020-01-15 06:48] LABS: Basophils # (auto) 0 10 ^3/uL (0-0.2); Basophils % (auto) 0.6 % (0.0-2.0); Eosinophils # (auto) 0.2 10 ^3/uL (0-0.8); Eosinophils % (auto) 2.1 % (0.0-7.0); Hematocrit 30.3 % (41.0-53.0); Hemoglobin 10.6 g/dL (13.5-17.5); Lymphocytes # (auto) 1.7 10 ^3/uL (0.4-5.4); Lymphocytes % (auto) 22.6 % (10.0-50.0); Mean Corpuscular Hemoglobin 32.9 pg (28.0-32.0); Mean Corpuscular Hgb Conc. 34.9 g/dL (32.0-36.0); Mean Corpuscular Volume 94.2 fL (80.0-100.0); Monocytes # (auto) 0.6 10 ^3/uL (0-1.3); Monocytes % (auto) 8.5 % (0.0-12.0); Neutrophils # (auto) 4.8 10 ^3/uL (1.6-8.6); Neutrophils % (auto) 66.2 % (37.0-80.0); Nucleated Red Blood Cells % 0.1 %; Platelet Count (auto) 201 10^3/uL (140-450); Red Blood Cells 3.22 10^6/uL (4.5-5.90); White Blood Cell 7.3 10^3/uL (4.4-10.8)
[2020-01-15 07:00] LABS: Calcium 8.2 mg/dL (8.5-10.1); Potassium 3.8 mmol/L (3.5-5.1)
[2020-01-15 07:04] LABS: BUN/Creatinine Ratio 14.4
--- NOTE | 2020-01-15 07:12 | NUR ---
END OF SHIFT NOTE Endorsed patient care to day shift RN. Patient AOX4, no S/S of distress or SOB.
--- NOTE | 2020-01-15 08:16 | NUR ---
OPENING SHIFT NOTE Assumed care of patient. Patient is Awake and alert. No signs and symptoms of distress or SOB noted. Bed is in lowest locked position, side rails up x2, call light with in reach. Reviewed POC with patient and verbalized understanding. Will continue to monitor Q1hr an PRN.
[2020-01-15 09:00] VITALS: BP 126/77
[2020-01-15] MEDS: FUROSEMIDE 40 MG/4 ML VIAL IV SCH (10:01)
[2020-01-15] MEDS: LISINOPRIL 20 MG TAB PO SCH (10:02)
[2020-01-15] MEDS: DOXYCYCLINE 100 MG TAB/CAP PO SCH ×2 (10:02→22:45)
[2020-01-15] MEDS: ENOXAPARIN SOD 40 MG/0.4 ML SYRINGE SC SCH (10:02)
[2020-01-15] MEDS: ASPirin 81 mg TAB PO SCH (10:02)
[2020-01-15] MEDS: amLODIPine BESYLATE 5 MG TAB PO SCH (10:03)
[2020-01-15] MEDS: CLOPIDOGREL BISULFATE 75 MG TAB PO SCH (10:03)
[2020-01-15] MEDS: CARVEDILOL 12.5 MG TAB PO SCH ×2 (10:03→18:00)
[2020-01-15] MEDS: PANTOPRAZOLE 40 MG TAB PO SCH ×2 (10:03→22:45)
[2020-01-15] MEDS ORDERED: DEXTROSE (50%) 50ML SYRG IV PRN (11:15)
[2020-01-15] MEDS: ACCU-CHEK COMFORT CURVE STRIP VI SCH ×3 (12:42→22:46)
[2020-01-15] MEDS: Glucerna Carbsteady SHAKE Vanilla 8oz PO SCH ×2 (12:42→18:06)
[2020-01-15] MEDS: InsuLIN REG 1unit/0.01ml Soln (100units/ml) SC SCH ×3 (12:43→22:48)
[2020-01-15 13:00] VITALS: BP 104/57
--- NOTE | 2020-01-15 13:40 | NUR ---
Pt refused PT eval today. Will attempt tomorrow per pt request.
--- NOTE | 2020-01-15 13:43 | NUR ---
Respiratory note: PT JANNET MCNAMARA DC. PT HAS BEEN REFUSING AND PT STATES THE DO NOT DO ANYTHING FOR HIM.
[2020-01-15 17:00] VITALS: BP 99/63
--- NOTE | 2020-01-15 19:41 | NUR ---
Opening Shift Note Assumed care of patient, awake and alert. Patient is currently in bed with the rails up x2. Bed is locked in the lowest position and the call light is within reach. No S/S of distress/SOB or pain. Instructed on POC and to call for assist as needed. Will continue to monitor.
[2020-01-15 22:00] VITALS: BP 122/71
[2020-01-15] MEDS: ATORVASTATIN 20 MG TAB PO SCH (22:45)
[2020-01-16] MEDS: MORPHINE SULF INJ 2 MG/ML SYRINGE 1ML IV PRN ×3 (04:36→21:56)
[2020-01-16 05:00] VITALS: BP 128/74
[2020-01-16 05:30] LABS: Basophils # (auto) 0.1 10 ^3/uL (0-0.2); Basophils % (auto) 0.8 % (0.0-2.0); Eosinophils # (auto) 0.3 10 ^3/uL (0-0.8); Eosinophils % (auto) 3.7 % (0.0-7.0); Hematocrit 30.3 % (41.0-53.0); Hemoglobin 10.4 g/dL (13.5-17.5); Lymphocytes # (auto) 1.4 10 ^3/uL (0.4-5.4); Mean Corpuscular Hemoglobin 32.1 pg (28.0-32.0); Mean Corpuscular Hgb Conc. 34.3 g/dL (32.0-36.0); Mean Corpuscular Volume 93.8 fL (80.0-100.0); Monocytes # (auto) 0.5 10 ^3/uL (0-1.3); Monocytes % (auto) 7.4 % (0.0-12.0); Neutrophils # (auto) 4.8 10 ^3/uL (1.6-8.6); Neutrophils % (auto) 68.1 % (37.0-80.0); Nucleated Red Blood Cells % 0.1 %; Platelet Count (auto) 205 10^3/uL (140-450); Red Blood Cells 3.23 10^6/uL (4.5-5.90); White Blood Cell 7.1 10^3/uL (4.4-10.8)
[2020-01-16 05:47] LABS: BUN/Creatinine Ratio 14.2; Calcium 8.2 mg/dL (8.5-10.1); Potassium 4.1 mmol/L (3.5-5.1)
[2020-01-16] MEDS: ACCU-CHEK COMFORT CURVE STRIP VI SCH ×4 (06:52→21:58)
[2020-01-16] MEDS: CEFEPIME 1 GM in SODIUM CHL 0.9% 50 ML IV SCH ×3 (06:52→21:54)
[2020-01-16] MEDS: InsuLIN REG 1unit/0.01ml Soln (100units/ml) SC SCH ×4 (06:54→21:57)
--- NOTE | 2020-01-16 08:03 | NUR ---
OPENING SHIFT NOTE Resumed care of patient. Patient is Awake and alert and eating breakfast comfortably in bed. No signs and symptoms of distress or SOB noted. Bed is in lowest locked position, side rails up x2, call light with in reach. Updated patient on plan of care and patient verbalized understanding. Will continue to monitor Q1hr an PRN.
[2020-01-16 08:40] VITALS: BP 133/79
[2020-01-16] MEDS: FUROSEMIDE 40 MG/4 ML VIAL IV SCH (09:16)
[2020-01-16] MEDS: ENOXAPARIN SOD 40 MG/0.4 ML SYRINGE SC SCH (09:17)
[2020-01-16] MEDS: DOXYCYCLINE 100 MG TAB/CAP PO SCH ×2 (09:18→21:55)
[2020-01-16] MEDS: LISINOPRIL 20 MG TAB PO SCH (09:18)
[2020-01-16] MEDS: ASPirin 81 mg TAB PO SCH (09:18)
[2020-01-16] MEDS: PANTOPRAZOLE 40 MG TAB PO SCH ×2 (09:18→21:55)
[2020-01-16] MEDS: CLOPIDOGREL BISULFATE 75 MG TAB PO SCH (09:19)
[2020-01-16] MEDS: CARVEDILOL 12.5 MG TAB PO SCH ×2 (09:19→17:34)
[2020-01-16] MEDS: amLODIPine BESYLATE 5 MG TAB PO SCH (09:19)
[2020-01-16] MEDS: Glucerna Carbsteady SHAKE Vanilla 8oz PO SCH ×3 (09:20→17:33)
[2020-01-16 13:00] VITALS: BP 117/68
[2020-01-16] MEDS ORDERED: SPIRONOLACTONE 25 MG TAB PO ONE (14:00)
[2020-01-16 17:00] VITALS: BP 121/70
--- NOTE | 2020-01-16 19:25 | NUR ---
OPENING SHIFT NOTE Resumed care of patient. Patient is Awake and alert. No signs and symptoms of distress or SOB noted. Bed is in lowest locked position, side rails up x2, call light with in reach. Updated patient on plan of care and patient verbalized understanding. Will continue to monitor Q1hr an PRN.
[2020-01-16] MEDS: LORazepam 0.5 MG TAB PO PRN (21:55)
[2020-01-16] MEDS: ATORVASTATIN 20 MG TAB PO SCH (21:55)
[2020-01-16 22:00] VITALS: BP 107/61
[2020-01-17] MEDS: MORPHINE SULF INJ 2 MG/ML SYRINGE 1ML IV PRN ×5 (02:00→22:40)
[2020-01-17 05:00] VITALS: BP 121/72
[2020-01-17] MEDS: CEFEPIME 1 GM in SODIUM CHL 0.9% 50 ML IV SCH ×2 (05:51→13:36)
[2020-01-17] MEDS: ACCU-CHEK COMFORT CURVE STRIP VI SCH ×4 (05:51→21:17)
[2020-01-17] MEDS: InsuLIN REG 1unit/0.01ml Soln (100units/ml) SC SCH ×4 (05:53→21:21)
[2020-01-17 06:24] LABS: Basophils # (auto) 0.1 10 ^3/uL (0-0.2); Basophils % (auto) 0.8 % (0.0-2.0); Eosinophils # (auto) 0.3 10 ^3/uL (0-0.8); Eosinophils % (auto) 4.1 % (0.0-7.0); Hematocrit 29.4 % (41.0-53.0); Hemoglobin 10.2 g/dL (13.5-17.5); Lymphocytes # (auto) 1.4 10 ^3/uL (0.4-5.4); Lymphocytes % (auto) 22.9 % (10.0-50.0); Mean Corpuscular Hemoglobin 32.3 pg (28.0-32.0); Mean Corpuscular Hgb Conc. 34.8 g/dL (32.0-36.0); Monocytes # (auto) 0.5 10 ^3/uL (0-1.3); Monocytes % (auto) 7.7 % (0.0-12.0); Neutrophils % (auto) 64.5 % (37.0-80.0); Nucleated Red Blood Cells % 0.1 %; Platelet Count (auto) 211 10^3/uL (140-450); Red Blood Cells 3.16 10^6/uL (4.5-5.90); Red Cell Distribution Width 12.8 % (11.8-14.3); White Blood Cell 6.2 10^3/uL (4.4-10.8)
--- NOTE | 2020-01-17 06:48 | NUR ---
END OF SHIFT NOTE will Endorse patient care to day shift RN. Patient AOX4, no S/S of distress or SOB.
[2020-01-17 06:56] LABS: Potassium 4.3 mmol/L (3.5-5.1)
[2020-01-17 07:07] LABS: BUN/Creatinine Ratio 15.8
[2020-01-17 08:00] VITALS: BP 121/70
--- NOTE | 2020-01-17 08:00 | NUR ---
ASSESSMENT NOTE PT IS ALERT ORIENTED X4, RESTING IN BED COMFORTABLY, NO DISTRESS NOTED, ABLE TO SELF REPOSITION AND VERBALIS HIS DEMANDS, LARGE SOFT ABDOMEN NOTED, OXYGEN 2 L NC, ON PAIN MANAGEMENT FOR RIGHT FLANK ACHING PAIN, FALL RISK PRECAUTIONS, CALL LIGHT WITHIN REACH
[2020-01-17] MEDS: LISINOPRIL 20 MG TAB PO SCH (08:55)
[2020-01-17] MEDS: FUROSEMIDE 40 MG/4 ML VIAL IV SCH (08:55)
[2020-01-17] MEDS: DOXYCYCLINE 100 MG TAB/CAP PO SCH ×2 (08:55→21:16)
[2020-01-17] MEDS: FLUCONAZOLE 100 MG TAB PO SCH (08:56)
[2020-01-17] MEDS: PANTOPRAZOLE 40 MG TAB PO SCH ×2 (08:56→21:16)
[2020-01-17] MEDS: SPIRONOLACTONE 25 MG TAB PO SCH (08:56)
[2020-01-17] MEDS: ASPirin 81 mg TAB PO SCH (08:56)
[2020-01-17] MEDS: CLOPIDOGREL BISULFATE 75 MG TAB PO SCH (08:56)
[2020-01-17] MEDS: CARVEDILOL 12.5 MG TAB PO SCH ×2 (08:57→17:22)
[2020-01-17] MEDS: amLODIPine BESYLATE 5 MG TAB PO SCH (08:57)
[2020-01-17 09:00] VITALS: BP 130/65
[2020-01-17] MEDS: ENOXAPARIN SOD 40 MG/0.4 ML SYRINGE SC SCH (09:07)
[2020-01-17] MEDS: Glucerna Carbsteady SHAKE Vanilla 8oz PO SCH ×3 (11:55→18:10)
--- NOTE | 2020-01-17 12:19 | NUR ---
JOE ROJAS AT BED SIDE FOLLOWING UP ON PT
[2020-01-17 13:00] VITALS: BP 108/67
--- NOTE | 2020-01-17 14:59 | NUR ---
Nutrition Assessment Notes please see attached link for complete assessment [employer] needs BW 85 [id number] kcals (25-30 kcal/kgBW), Est Protein needs: 85-102 gms/day (1.0-1.2 gm/kgBW). Will continue to monitor and reassess prn. Addendum: 01/17/20 at [address] Amended: Links added.
--- NOTE | 2020-01-17 16:09 | NUR ---
DR VARELA / GI AT BED SIDE FOLLOWING UP ON PT
[2020-01-17] MEDS: HYOSCYAMINE SULF 0.125 MG ODT TAB PO PRN ×2 (16:19→21:16)
[2020-01-17 16:57] VITALS: BP 109/66
--- NOTE | 2020-01-17 18:10 | NUR ---
PT CONTINUE STABLE, CONTINUE MONITORING
[2020-01-17] MEDS: ATORVASTATIN 20 MG TAB PO SCH (21:16)
[2020-01-17 22:00] VITALS: BP 116/59
[2020-01-17] MEDS: LORazepam 0.5 MG TAB PO PRN (22:36)
[2020-01-18] MEDS: MORPHINE SULF INJ 2 MG/ML SYRINGE 1ML IV PRN ×5 (04:16→22:12)
[2020-01-18 05:00] VITALS: BP 118/62
[2020-01-18] MEDS: ACCU-CHEK COMFORT CURVE STRIP VI SCH ×4 (06:09→22:30)
[2020-01-18] MEDS: InsuLIN REG 1unit/0.01ml Soln (100units/ml) SC SCH ×4 (06:14→22:31)
--- NOTE | 2020-01-18 07:25 | NUR ---
END OF SHIFT NOTE Endorse patient care to day shift RN. Patient AOX4, no S/S of distress or SOB.
[2020-01-18] MEDS: CARVEDILOL 12.5 MG TAB PO SCH ×2 (08:27→17:48)
[2020-01-18] MEDS: Glucerna Carbsteady SHAKE Vanilla 8oz PO SCH ×3 (08:27→17:54)
[2020-01-18 08:58] VITALS: BP 126/75
[2020-01-18] MEDS: FUROSEMIDE 40 MG/4 ML VIAL IV SCH (09:59)
[2020-01-18] MEDS: amLODIPine BESYLATE 5 MG TAB PO SCH (10:00)
[2020-01-18] MEDS: LISINOPRIL 20 MG TAB PO SCH (10:00)
[2020-01-18] MEDS: ASPirin 81 mg TAB PO SCH (10:01)
[2020-01-18] MEDS: SPIRONOLACTONE 25 MG TAB PO SCH (10:01)
[2020-01-18] MEDS: CLOPIDOGREL BISULFATE 75 MG TAB PO SCH (10:01)
[2020-01-18] MEDS: PANTOPRAZOLE 40 MG TAB PO SCH ×2 (10:01→22:10)
[2020-01-18] MEDS: AZITHROMYCIN 250 MG TAB PO SCH (10:01)
[2020-01-18] MEDS: DOXYCYCLINE 100 MG TAB/CAP PO SCH ×2 (10:01→22:11)
[2020-01-18] MEDS: FLUCONAZOLE 100 MG TAB PO SCH (10:01)
[2020-01-18] MEDS: ENOXAPARIN SOD 40 MG/0.4 ML SYRINGE SC SCH (10:02)
--- NOTE | 2020-01-18 11:30 | NUR ---
pt seen by Dr. Rodriguez made aware pt is still having abdominal pain and pt is refusing hyoscyamine, per pt it doesn't work. Dr. Rodriguez will change it since pain is more on the muscle.
[2020-01-18] MEDS: CARISOPRODOL 350 MG TAB PO PRN (12:16)
[2020-01-18 13:00] VITALS: BP 112/60
--- NOTE | 2020-01-18 15:51 | NUR ---
pt seen by Dr. Siu [facility]
[2020-01-18 16:49] VITALS: BP 103/62
[2020-01-18 21:34] VITALS: BP 96/58
[2020-01-18] MEDS: LORazepam 0.5 MG TAB PO PRN (22:11)
[2020-01-18] MEDS: ATORVASTATIN 20 MG TAB PO SCH (22:11)
[2020-01-18] MEDS: INSULIN LANTUS (GLARGINE) 1 /0.01ml (100units/ml) SC SCH (22:32)
[2020-01-19] MEDS: MORPHINE SULF INJ 2 MG/ML SYRINGE 1ML IV PRN ×4 (02:18→21:50)
[2020-01-19 04:45] VITALS: BP 114/60
[2020-01-19 06:39] LABS: Basophils # (auto) 0.1 10 ^3/uL (0-0.2); Basophils % (auto) 0.8 % (0.0-2.0); Eosinophils # (auto) 0.3 10 ^3/uL (0-0.8); Eosinophils % (auto) 4.6 % (0.0-7.0); Hematocrit 29.6 % (41.0-53.0); Hemoglobin 10.5 g/dL (13.5-17.5); Lymphocytes % (auto) 30.6 % (10.0-50.0); Mean Corpuscular Hgb Conc. 35.4 g/dL (32.0-36.0); Mean Corpuscular Volume 93.2 fL (80.0-100.0); Monocytes # (auto) 0.5 10 ^3/uL (0-1.3); Neutrophils # (auto) 3.7 10 ^3/uL (1.6-8.6); Platelet Count (auto) 226 10^3/uL (140-450); Red Blood Cells 3.18 10^6/uL (4.5-5.90); Red Cell Distribution Width 12.9 % (11.8-14.3); White Blood Cell 6.6 10^3/uL (4.4-10.8)
[2020-01-19] MEDS: ACCU-CHEK COMFORT CURVE STRIP VI SCH ×4 (06:55→21:58)
[2020-01-19] MEDS: InsuLIN REG 1unit/0.01ml Soln (100units/ml) SC SCH ×4 (06:56→21:57)
[2020-01-19 07:00] LABS: BUN/Creatinine Ratio 17.7; Calcium 8.6 mg/dL (8.5-10.1); Potassium 4.3 mmol/L (3.5-5.1)
[2020-01-19 08:00] VITALS: BP 95/52
--- NOTE | 2020-01-19 08:14 | NUR ---
END OF SHIFT NOTE Endorse patient care to day shift RN. Patient AOX4, no S/S of distress or SOB.
[2020-01-19 09:00] VITALS: BP 115/65
[2020-01-19] MEDS: FUROSEMIDE 40 MG/4 ML VIAL IV SCH (09:34)
[2020-01-19] MEDS: AZITHROMYCIN 250 MG TAB PO SCH (09:34)
[2020-01-19] MEDS: FLUCONAZOLE 100 MG TAB PO SCH (09:34)
[2020-01-19] MEDS: amLODIPine BESYLATE 5 MG TAB PO SCH (09:35)
[2020-01-19] MEDS: DOXYCYCLINE 100 MG TAB/CAP PO SCH ×2 (09:35→21:49)
[2020-01-19] MEDS: LISINOPRIL 20 MG TAB PO SCH (09:35)
[2020-01-19] MEDS: ASPirin 81 mg TAB PO SCH (09:35)
[2020-01-19] MEDS: CLOPIDOGREL BISULFATE 75 MG TAB PO SCH (09:35)
[2020-01-19] MEDS: CARVEDILOL 12.5 MG TAB PO SCH ×2 (09:36→18:19)
[2020-01-19] MEDS: PANTOPRAZOLE 40 MG TAB PO SCH ×2 (09:36→21:49)
[2020-01-19] MEDS: Glucerna Carbsteady SHAKE Vanilla 8oz PO SCH ×3 (09:36→18:19)
[2020-01-19] MEDS: SPIRONOLACTONE 25 MG TAB PO SCH (09:36)
--- NOTE | 2020-01-19 10:30 | NUR ---
DR VARELA / GI AT BED SIDE FOLLOWING UP ON PT, ENCOURAGE PT TO USE SOMA A PAIN MEDICATION FOR ABDOMEN PAIN
--- NOTE | 2020-01-19 11:00 | NUR ---
DR ROJAS AT BED SIDE FOLLOWING UP ON PT, DR ROJAS INFORM PT WITH THE DISCHARGE HOME PLANING FOR TOMORROW AND FOLLOW UP WITH HIS PRIMARY OUTPATIENT
[2020-01-19 13:00] VITALS: BP 104/60
[2020-01-19 17:00] VITALS: BP 95/58
--- NOTE | 2020-01-19 18:22 | NUR ---
PT CONTINUE STABLE, CONTINUE MONITORING
--- NOTE | 2020-01-19 19:45 | NUR ---
ASSUMED CARE, PT. AWAKE, NO C/O PAIN, NO SOB.
[2020-01-19 21:42] VITALS: BP 114/70
[2020-01-19] MEDS: ATORVASTATIN 20 MG TAB PO SCH (21:49)
[2020-01-19] MEDS: INSULIN LANTUS (GLARGINE) 1 /0.01ml (100units/ml) SC SCH (21:58)
[2020-01-20] MEDS: MORPHINE SULF INJ 2 MG/ML SYRINGE 1ML IV PRN ×4 (01:53→14:18)
[2020-01-20 04:35] VITALS: BP 116/69
--- NOTE | 2020-01-20 05:17 | NUR ---
called up dietary and leave a message re: pt. diet.
[2020-01-20] MEDS: ACCU-CHEK COMFORT CURVE STRIP VI SCH ×3 (06:07→17:00)
[2020-01-20] MEDS: InsuLIN REG 1unit/0.01ml Soln (100units/ml) SC SCH ×3 (06:07→17:00)
--- NOTE | 2020-01-20 07:30 | NUR ---
DR OSEGUERA AT BED SIDE FOLLOWING UP ON PT
[2020-01-20 08:00] VITALS: BP 114/70
--- NOTE | 2020-01-20 08:00 | NUR ---
ASSESSMENT NOTE PT IS ALERT ORIENTED X4, RESTING IN BED COMFORTABLY, NO DISTRESS NOTED, ABLE TO SELF REPOSITION AND VERBALIS HIS DEMANDS, LARGE SOFT ABDOMEN NOTED, OXYGEN 2 L NC, ON PAIN MANAGEMENT FOR RIGHT FLANK ACHING PAIN, FALL RISK PRECAUTIONS, PT CONTINUE ON PAIN MANAGEMENT NEEDED, CONTINUE REFUSING SOMA, STATED ITS NOT WORKING CALL LIGHT WITHIN REACH
[2020-01-20 09:00] VITALS: BP 116/67
[2020-01-20] MEDS: AZITHROMYCIN 250 MG TAB PO SCH (10:00)
[2020-01-20] MEDS: FLUCONAZOLE 100 MG TAB PO SCH (10:00)
--- NOTE | 2020-01-20 10:00 | NUR ---
DR VARELA AT BED SIDE FOLLOWING UP ON PT, PT CONTINUE REFUSING TO TAKE SOMA
[2020-01-20] MEDS: DOXYCYCLINE 100 MG TAB/CAP PO SCH (10:02)
[2020-01-20] MEDS: FUROSEMIDE 40 MG/4 ML VIAL IV SCH (10:02)
[2020-01-20] MEDS: ASPirin 81 mg TAB PO SCH (10:03)
[2020-01-20] MEDS: PANTOPRAZOLE 40 MG TAB PO SCH (10:03)
[2020-01-20] MEDS: CLOPIDOGREL BISULFATE 75 MG TAB PO SCH (10:03)
[2020-01-20] MEDS: SPIRONOLACTONE 25 MG TAB PO SCH (10:03)
[2020-01-20] MEDS: CARVEDILOL 12.5 MG TAB PO SCH (10:05)
[2020-01-20] MEDS: amLODIPine BESYLATE 5 MG TAB PO SCH (10:06)
[2020-01-20] MEDS: LISINOPRIL 20 MG TAB PO SCH (10:06)
--- NOTE | 2020-01-20 11:15 | NUR ---
DR ROJAS AT BED SIDE WITH DISCHARGE HOME INSTRUCTION TO FOLLOW UP WITH DR Izzy OSEGUERA ON ONE WEEK, PT REQUESTED TO GO HOME WITH SOMA RX
[2020-01-20] MEDS: CARISOPRODOL 350 MG TAB PO PRN (11:40)
[2020-01-20] MEDS: Glucerna Carbsteady SHAKE Vanilla 8oz PO SCH ×2 (11:42→12:25)
[2020-01-20 12:43] VITALS: BP 103/58
[2020-01-20] MEDS ORDERED: FURO40TA4 PO (13:05)
[2020-01-20] MEDS ORDERED: LISI-646 PO (13:07)
--- NOTE | 2020-01-20 14:59 | NUR ---
assessment Patient is a 69 year old male who is alert and oriented. Patients cognitive abilities are intact. Prior to admission patient lived home with family and functioned independently. Patient informed me he is able to care for his own ADLs. Per patient he will return home to his prior living arrangements post discharge and family will transport him home. Patient has a cane for home use. Patient has no safety issues regarding returning home on discharge. Patient has no post discharge needs identified. I informed patient he has a right to speak to a social insurance specialist regarding all care. I informed patient he has a right to participate in any and all discharge planning. Patient does not have a POA and advanced directive. I have offered patient information on POA and advanced directives. I informed the patient the advantages and benefits of having an Advanced Directive. Patient verbalized understanding and agreed to discharge plan. Addendum: 01/20/20 at 1500 by Heidi LIRIANO Amended: Links added.
[2020-01-20 15:34] VITALS: BP 103/58
[2020-01-20 16:46] VITALS: BP 103/61
--- NOTE | 2020-01-20 16:52 | NUR ---
[facility] INFORM ME THAT THEY DO NOT CARRY SOMA IN THEIR PHARMACY, DR ROJAS IS AWARE AND WILL COME OVER IN PERSON TO DROP OFF THE PRESCRIPTION
--- NOTE | 2020-01-20 17:37 | NUR ---
Discharge instructions given as ordered. Encourage to follow up with PMD as instructed. All questions and concerns addressed. Patient verbalized understanding. Medication reconciliation form completed and copy given to patient. Home medications held in Pharmacy returned to patient,IV removed with catheter intact, pressure dressing applied. Telemetry unit returned to ICU. Patient taken to vehicle via wheelchair with all personal belongings, accompanied by staff to the main lobby, where meet his family. No distress noted at time of departure.
== END 2020-01-20 17:40 | disposition home or self-care (01) | DRG 190 ==
LOC: ER 14:18 → EDBD 14:18 → TELE 14:19 → TELE-EAST 19:09
PROVIDERS: ADMIT Hospitalist; ATTEND Internal Medicine Nephrology
PROC: 5A09357 Assistance with Respiratory Ventilation, Less than 24 Consecutive Hours, Continuous Positive Airway Pressure (ICD-10-PCS; principal; 2020-01-13)
PROC: 02HV33Z Insertion of Infusion Device into Superior Vena Cava, Percutaneous Approach (ICD-10-PCS; 2020-01-13)
DX: I21.4 Non-ST elevation (NSTEMI) myocardial infarction (principal); J96.21 Acute and chronic respiratory failure with hypoxia; E11.00 Type 2 diabetes mellitus with hyperosmolarity without nonketotic hyperglycemic-hyperosmolar coma (NKHHC); J15.6 Pneumonia due to other Gram-negative bacteria; I50.43 Acute on chronic combined systolic (congestive) and diastolic (congestive) heart failure; E44.0 Moderate protein-calorie malnutrition; E87.1 Hypo-osmolality and hyponatremia; R16.0 Hepatomegaly, not elsewhere classified; E11.21 Type 2 diabetes mellitus with diabetic nephropathy; I11.0 Hypertensive heart disease with heart failure; K76.0 Fatty (change of) liver, not elsewhere classified; J44.1 Chronic obstructive pulmonary disease with (acute) exacerbation; R79.89 Other specified abnormal findings of blood chemistry; Z20.828 Contact with and (suspected) exposure to other viral communicable diseases; E78.5 Hyperlipidemia, unspecified; K57.30 Diverticulosis of large intestine without perforation or abscess without bleeding; I25.10 Atherosclerotic heart disease of native coronary artery without angina pectoris; Z95.5 Presence of coronary angioplasty implant and graft; Z79.84 Long term (current) use of oral hypoglycemic drugs; Z79.899 Other long term (current) drug therapy; Z68.25 Body mass index [BMI] 25.0-25.9, adult
CPT/HCPCS: 36415; 36569; 71045; 71275; 74176; 80048; 80053; 81001; 82728; 82962; 83036; 83615; 83735; 83880; 84100; 84443; 84484; 85025; 85379; 85610; 85730; 87040; 87070; 87081; 87086; 87804; 87880; 94660; 97163; 99291; G0378; J0696; J1815; J2543